=== PATIENT | female | born 1955 | race Caucasian/White ===

== ENCOUNTER 2016-09-22 12:39 | Emergency (ER) | payer OTHER ==
[~2016-09-22] VITALS: Ht 157.5 cm; Wt 72.6 kg
[2016-09-22] MEDS ORDERED: METFORMIN HCL500 MG PO (13:00)
[2016-09-22] MEDS ORDERED: NOVOLOG100 UNIT/1 SUBQ (13:00)
[2016-09-22] MEDS ORDERED: MOBIC15 MG PO (14:17)
[2016-09-22 14:49] VITALS: BP 142/57
== END 2016-09-22 14:51 | disposition home or self-care (01) ==
LOC: ER 12:39 → EDBD 12:39 → ER 14:51
DX: M25.571 Pain in right ankle and joints of right foot (principal); M25.551 Pain in right hip; E11.9 Type 2 diabetes mellitus without complications; V43.62XA Car passenger injured in collision with other type car in traffic accident, initial encounter; Y93.I9 Activity, other involving external motion; Y92.488 Other paved roadways as the place of occurrence of the external cause; Y99.8 Other external cause status